=== PATIENT | female | born 1955 | race Caucasian/White ===

== ENCOUNTER 2022-08-27 13:26 | Outpatient (CLI) | payer MEDICARE | END 2022-08-27 13:27 | disposition home or self-care (01) | LOC: CSHCT 13:26 | PROVIDERS: ATTEND Physician Assistant Medical | DX: R10.32 Left lower quadrant pain (principal); K57.92 Diverticulitis of intestine, part unspecified, without perforation or abscess without bleeding | CPT/HCPCS: 36415; 74177; 85025 ==